=== PATIENT | male | born 1945 | race Caucasian/White ===

== ENCOUNTER 2021-11-11 09:55 | Day surgery (SDC) | payer MEDICARE, SELFPAY ==
[2021-11-05 14:05] VITALS: BMI 23.3
--- NOTE | 2021-11-08 13:19 | MHC.SHP ---
Pre-Procedural Eval Section A Date of Service: 11/08/21 The patient is an INPATIENT: No Changes since office visit: No Cold of Flu in the past 2 weeks, No New Medical Problems, No Changes in Medication and No Patient answered all questions The History & Physical has been completed within 30 days and I have reviewed it.: Yes Section B Chief Complaint: cataract Allergies: Allergies Allergy/AdvReac Type Severity Reaction Status Date / Time lisinopril AdvReac Cough Verified 11/05/21 13:09 Plan Diagnosis/Plan: Unchanged I have reviewed the history and physical and performed a pertinent physical examination on my patient. No changes have occurred unless specified.
[2021-11-11 12:31] VITALS: BP 194/73; PULSE 64; RESP 16; TEMP 36.2; O2SAT 99
[2021-11-11 12:35] VITALS: BP 187/83; PULSE 51
[2021-11-11] MEDS: Tropicamide 1 % Ophth Sol 3 ML BTL 1 DROP EYE-RIGHT ×3 (12:44→12:57)
[2021-11-11] MEDS: Cyclopentolate 1 % Ophth Sol 2 ML DRPBTL 1 DROP EYE-RIGHT ×3 (12:44→12:55)
[2021-11-11] MEDS: Lactated Ringers 500 ML 50 ML IVCONT (12:48)
[2021-11-11] MEDS: Phenylephrine HCL 2.5% Oph SoL 2 ML BOTTLE 1 DROP EYE-RIGHT ×3 (12:48→12:58)
--- NOTE | 2021-11-11 12:50 | P.CONAN_ITS ---
HPI - Anesthesia Eval Consult details Narrative: Right eye cataract [facility] Past Medical History Medical History Atrial fibrillation Cataracts, bilateral COPD (chronic obstructive pulmonary disease) Emphysema lung HTN (hypertension) Hx of glaucoma Mixed hyperlipidemia Prediabetes Tobacco use Urinary retention Wears hearing aid in right ear Family History Family history of problems with anesthesia: No Surgical History Surgical History History of carpal tunnel release of both wrists History of eye surgery History of Problems with Anesthesia: No Social History Social History Are you a primary customer care professional to a significant other at home: No Do you presently have visiting nurse or other home services: No Patient Tobacco Use Status: Current everyday Tobacco user Tobacco use type: Cigarette Cigarettes Per Day: 18 Years Smoked: 56 Smoked in Last 30 Days: Yes Use of substances other than those prescribed or required for medical reasons: No Have you been hit, kicked, punched, or otherwise hurt by someone within the past year? If so, by whom?: No Are you DNR?: No Advance Directives: No Advance Directives Information Provided: Yes Advance Directives on File: No Recently lost weight without trying: No Nutrition Risks: Surgical patient >75years Poor oral hygiene: No (full upper denture, partial lower) Meds Allergies Allergy/AdvReac Type Severity Reaction Status Date / Time lisinopril AdvReac Cough Verified 11/05/21 13:09 Active Medications: Current Medications Lactated Ringer's (Lr) 500 mls @ 50 mls/hr IVCONT .Q10H RENITA Last Admin: 11/11/21 12:48 Dose: 50 mls/hr Povidone Iodine (Povidone Iodine 5 % Ophth Soln 30 Ml Bottle) 1 appl EYE-RIGHT PREOP PRN PRN Reason: Pre-Op Surgical Implant Prophy Home Medications Medication Instructions Recorded Confirmed Last Taken Type aspirin 81 mg chewable tablet 81 mg PO DAILY 11/05/21 11/05/21 Unknown History latanoprost 0.005 % eye drops 1 drp ophthalmic (eye) QPM 11/05/21 11/05/21 Unknown History losartan 50 mg tablet 75 mg PO DAILY 11/05/21 11/05/21 11/11/21 History metoprolol tartrate 75 mg tablet 75 mg PO DAILY 11/05/21 11/05/21 11/11/21 History simvastatin 20 mg tablet 20 mg PO BEDTIME 11/05/21 11/05/21 Unknown History Exam Exam Date and Time: November 11, 2021 1250 Height,Weight and Vital Signs: Height 5 ft 5 in Weight 63.503 kg Last Vital Signs Temp 97.1 F 11/11/21 12:31 Pulse 51 11/11/21 12:35 Resp 16 11/11/21 12:31 BP 187/83 H 11/11/21 12:35 Pulse Ox 99 11/11/21 12:31 O2 Del Method 11/11/21 12:31 Airway Mallampati Class: II TM Dist: >3cm Neck ROM: Full Partial: Upper and Lower Heart: rrr+[id number] Lungs: cta b/l Assessment and Plan Assessment Anesthesia Assessment: Anesthesia Plan Discussed and Chart Reviewed Final Anesthetic Review Family History of Problems with Anesthesia: No History of Problems with Anesthesia: No NPO: Yes ASA Class: III Final Preanesthetic Review: No Changes in Pt Med Stat, Meds/Allgs Chart Reviewed, Consent Obtained/Reviewed and Anes Risks/Benef Reviewed Patient Risk: Intermediate Procedure Risk: Low Assessment/Block/Sedation in SS: Assess/Block/Sedation-SS Anesthetic Plan Anesthetic Plan: MAC: and Agree w/ Assess. and Plan Disposition: Standard PACU
--- NOTE | 2021-11-11 13:08 | HO.PNOPHT ---
Ophthalmology Procedure Procedure Date of Service: 11/11/21 Ophthalmology Viscoelastic: Julio Kot Dual Pack Pro Ophthalmology Lenses: TECMICHELLE [id number] (17) Procedure Notes: PREOPERATIVE DIAGNOSIS: Decreased visual acuity right eye secondary to cataract POSTOPERATIVE DIAGNOSIS: Same PROCEDURE: Right cataract extraction with intraocular lens insertion SURGEON: Fili Brown M.D. ANESTHESIA: Topical/MAC ESTIMATED BLOOD LOSS: None COMPLICATIONS: None After obtaining informed consent, the patient was brought to the operating room suite and placed in the supine position. After adequate sedation per anesthesia, topical drops of Tetracaine were given to the right eye. The eye was then prepped and draped in the usual sterile fashion. The operating room microscope was then positioned over the operative eye and a lid speculum placed. A paracentesis was created. Viscoelastic was then instilled into the anterior chamber. A three plane incision was then created temporally, utilizing a 2.85 mm keratome. Capsulotomy forceps were then utilized to create a circular tear capsulotomy. Hydrodissection and hydrodelineation were carried out until adequate mobilization of the nucleus occurred. Phacoemulsification was then utilized to remove the dense central nucleus followed by removal of the cortical material utilizing the automated aspiration irrigation unit. Viscoelastic was instilled into the posterior capsular bag followed by placement of a posterior chamber intraocular lens without difficulty. The residual Viscoelastic was then removed utilizing the automated IA machine. The wound was checked and found to be watertight. The patient tolerated the procedure well and the lid speculum was removed. Intracameral injection of Vigamox 0.1 mL followed by a subtenon injection of Kenalog-40 0.2 mL were administered. The patient will be seen in the a.m.
[2021-11-11 13:55] VITALS: BP 164/81; PULSE 56; RESP 16; TEMP 36.6; O2SAT 97
== END 2021-11-11 14:02 | disposition home or self-care (01) ==
PROVIDERS: PCP Internal Medicine; Visit Provider Ophthalmology
PROC: (CPT 66985; principal; 2021-11-11 13:00)
DX: H25.11 Age-related nuclear cataract, right eye (principal); I10 Essential (primary) hypertension
CPT/HCPCS: 66984; J3010; J3300; V2632

== ENCOUNTER 2021-11-18 07:09 | Day surgery (SDC) | payer MEDICARE, SELFPAY ==
[2021-11-05 14:10] VITALS: BMI 23.3
--- NOTE | 2021-11-14 13:35 | MHC.SHP ---
Pre-Procedural Eval Section A Date of Service: 11/14/21 The patient is an INPATIENT: No Changes since office visit: No Cold of Flu in the past 2 weeks, No New Medical Problems, No Changes in Medication and No Patient answered all questions The History & Physical has been completed within 30 days and I have reviewed it.: Yes Section B Chief Complaint: cataract Allergies: Allergies Allergy/AdvReac Type Severity Reaction Status Date / Time lisinopril AdvReac Cough Verified 11/05/21 13:09 Plan Diagnosis/Plan: Unchanged I have reviewed the history and physical and performed a pertinent physical examination on my patient. No changes have occurred unless specified.
--- NOTE | 2021-11-15 09:36 | P.CONAN_ITS ---
Documented by User: Lisa Wharton NP 11/15/21 09:38 HPI - Anesthesia Eval Consult details Narrative: 76yo M for Left Cataract Extraction IOL Insertion PCP cleared Right eye 11/11/21: Fent 50, Labetolol 10 PMFSH Past Medical History Medical History Atrial fibrillation Cataracts, bilateral COPD (chronic obstructive pulmonary disease) Emphysema lung HTN (hypertension) Hx of glaucoma Mixed hyperlipidemia Prediabetes Tobacco use Urinary retention Wears hearing aid in right ear Family History Family history of problems with anesthesia: No Surgical History Surgical History History of carpal tunnel release of both wrists History of eye surgery History of Problems with Anesthesia: No Social History Social History Are you a primary school child care attendant to a significant other at home: No Do you presently have visiting nurse or other home services: No Patient Tobacco Use Status: Current everyday Tobacco user Tobacco use type: Cigarette Cigarettes Per Day: 18 Years Smoked: 56 Smoked in Last 30 Days: Yes Use of substances other than those prescribed or required for medical reasons: No Have you been hit, kicked, punched, or otherwise hurt by someone within the past year? If so, by whom?: No Are you DNR?: No Advance Directives: No Advance Directives Information Provided: Yes Advance Directives on File: No Recently lost weight without trying: No Nutrition Risks: Surgical patient >75years Poor oral hygiene: No (full upper denture, lower partial) Meds Allergies Allergy/AdvReac Type Severity Reaction Status Date / Time lisinopril AdvReac Cough Verified 11/18/21 08:55 Home Medications Medication Instructions Recorded Confirmed Last Taken Type aspirin 81 mg chewable tablet 81 mg PO DAILY 11/05/21 11/05/21 Unknown History latanoprost 0.005 % eye drops 1 drp ophthalmic (eye) QPM 11/05/21 11/05/21 Unknown History losartan 50 mg tablet 75 mg PO DAILY 11/05/21 11/05/21 11/18/21 06:00 History metoprolol tartrate 75 mg tablet 75 mg PO DAILY 11/05/21 11/05/21 11/11/21 History simvastatin 20 mg tablet 20 mg PO BEDTIME 11/05/21 11/05/21 Unknown History Exam Exam Date and Time: November 15, [id number] Height,Weight and Vital Signs: Height 5 ft 5 in Weight 63.503 kg Assessment and Plan Assessment Anesthesia Assessment: Chart Reviewed Final Anesthetic Review Family History of Problems with Anesthesia: No History of Problems with Anesthesia: No Documented by User: Tee Stark MD 11/18/21 09:19 [facility] [place] Past Medical History Medical History Atrial fibrillation Cataracts, bilateral COPD (chronic obstructive pulmonary disease) Emphysema lung HTN (hypertension) Hx of glaucoma Mixed hyperlipidemia Prediabetes Tobacco use Urinary retention Wears hearing aid in right ear Surgical History Surgical History History of carpal tunnel release of both wrists History of eye surgery Social History Social History Are you a primary school child care attendant to a significant other at home: No Do you presently have visiting nurse or other home services: No Patient Tobacco Use Status: Current everyday Tobacco user Tobacco use type: Cigarette Cigarettes Per Day: 18 Years Smoked: 56 Smoked in Last 30 Days: Yes Use of substances other than those prescribed or required for medical reasons: No Have you been hit, kicked, punched, or otherwise hurt by someone within the past year? If so, by whom?: No Are you DNR?: No Advance Directives: No Advance Directives Information Provided: Yes Advance Directives on File: No Recently lost weight without trying: No Nutrition Risks: Surgical patient >75years Poor oral hygiene: No (full upper denture, lower partial) Meds Allergies Allergy/AdvReac Type Severity Reaction Status Date / Time lisinopril AdvReac Cough Verified 11/18/21 08:55 Home Medications Medication Instructions Recorded Confirmed Last Taken Type aspirin 81 mg chewable tablet 81 mg PO DAILY 11/05/21 11/05/21 Unknown History latanoprost 0.005 % eye drops 1 drp ophthalmic (eye) QPM 11/05/21 11/05/21 Unknown History losartan 50 mg tablet 75 mg PO DAILY 11/05/21 11/05/21 11/18/21 06:00 History metoprolol tartrate 75 mg tablet 75 mg PO DAILY 11/05/21 11/05/21 11/11/21 History simvastatin 20 mg tablet 20 mg PO BEDTIME 11/05/21 11/05/21 Unknown History Exam Airway Mallampati Class: II TM Dist: >3cm Neck ROM: Full Partial: Upper and Lower Heart: rrr+s1s2 Lungs: cta b/l Assessment and Plan Assessment Anesthesia Assessment: Anesthesia Plan Discussed Final Anesthetic Review NPO: Yes ASA Class: III Final Preanesthetic Review: No Changes in Pt Med Stat, Meds/Allgs Chart Reviewed, Consent Obtained/Reviewed and Anes Risks/Benef Reviewed Patient Risk: Intermediate Procedure Risk: Low Assessment/Block/Sedation in SS: Assess/Block/Sedation-SS Anesthetic Plan Anesthetic Plan: MAC: and Agree w/ Assess. and Plan Disposition: Standard PACU
[2021-11-18 09:01] VITALS: BP 193/75; PULSE 56; RESP 16; TEMP 36.4; O2SAT 98
[2021-11-18] MEDS: Tetracaine HCl/PF 0.5% Oph Sol 4 ML DROPS 1 DROP EYE-LEFT (09:05)
[2021-11-18] MEDS: Cyclopentolate 1 % Ophth Sol 2 ML DRPBTL 1 DROP EYE-LEFT ×3 (09:08→09:24)
[2021-11-18] MEDS: Tropicamide 1 % Ophth Sol 3 ML BTL 1 DROP EYE-LEFT ×3 (09:10→09:26)
[2021-11-18] MEDS: Phenylephrine HCL 2.5% Oph SoL 2 ML BOTTLE 1 DROP EYE-LEFT ×3 (09:16→09:28)
[2021-11-18] MEDS: Lactated Ringers 500 ML 50 ML IV (09:20)
--- NOTE | 2021-11-18 10:10 | HO.PNOPHT ---
Ophthalmology Procedure Procedure Date of Service: 11/18/21 Ophthalmology Viscoelastic: Healisadora Kot Dual Pack Pro Ophthalmology Lenses: TECMICHELLE [id number] (19) Procedure Notes: PREOPERATIVE DIAGNOSIS: Decreased visual acuity left eye secondary to cataract POSTOPERATIVE DIAGNOSIS: Same PROCEDURE: Left cataract extraction with intraocular lens insertion SURGEON: Fili Brown M.D. ANESTHESIA: Topical/MAC ESTIMATED BLOOD LOSS: None COMPLICATIONS: None After obtaining informed consent, the patient was brought to the operation room suite and placed in the supine position. After adequate sedation per anesthesia, topical drops of Tetracaine were given to the left eye. The eye was then prepped and draped in the usual sterile fashion. The operating room microscope was then positioned over the operative eye and a lid speculum placed. A paracentesis was created. Viscoelastic was then instilled into the anterior chamber. A three plane incision was then created temporally, utilizing a 2.85 mm keratome. Capsulotomy forceps were then utilized to create a circular tear capsulotomy. Hydrodissection and hydrodelineation were carried out until adequate mobilization of the nucleus occurred. Phacoemulsification was then utilized to remove the dense central nucleus followed by removal of the cortical material utilizing the automated aspiration irrigation unit. Viscoat elastic was instilled into the posterior capsular bag followed by placement of a posterior chamber intraocular lens without difficulty. The residual Viscoat elastic was then removed utilizing the automated IA machine. The wound was check and found to be watertight. The patient tolerated the procedure well and the lid speculum was removed. Intracameral injection of Vigamox 0.1 mL followed by a subtenon injection of Kenalog-40 0.2 mL were administered. The patient will be seen in the a.m.
[2021-11-18 10:37] VITALS: BP 201/87; PULSE 62; RESP 16; TEMP 36.1; O2SAT 100
[2021-11-18 10:43] VITALS: BP 181/79; PULSE 59; RESP 16; TEMP 36.1; O2SAT 99
== END 2021-11-18 10:51 | disposition home or self-care (01) ==
PROVIDERS: PCP Internal Medicine; Visit Provider Ophthalmology
PROC: (CPT 66985; principal; 2021-11-18 10:00)
DX: H25.12 Age-related nuclear cataract, left eye (principal); H52.4 Presbyopia; H40.053 Ocular hypertension, bilateral; I48.91 Unspecified atrial fibrillation; Z79.82 Long term (current) use of aspirin; I10 Essential (primary) hypertension; E78.5 Hyperlipidemia, unspecified; R73.03 Prediabetes; J43.9 Emphysema, unspecified; R33.9 Retention of urine, unspecified; Z79.899 Other long term (current) drug therapy; Z88.8 Allergy status to other drugs, medicaments and biological substances; F17.210 Nicotine dependence, cigarettes, uncomplicated; Z86.16 Personal history of COVID-19
CPT/HCPCS: 66984; J3010; J3300; V2632